=== PATIENT | male | born 1945 | race Caucasian/White ===

== ENCOUNTER → 2016-07-19 | Outpatient (CLI) | payer MEDICARE | LOC: YCFC.O 10:38 | PROVIDERS: ATTEND Nurse Practitioner Family | DX: J06.9 Acute upper respiratory infection, unspecified (principal) ==

== ENCOUNTER → 2016-07-25 | Outpatient (CLI) | payer MEDICARE | LOC: LAB.O 08:38 | PROVIDERS: ATTEND Nurse Practitioner Family | DX: E11.9 Type 2 diabetes mellitus without complications (principal); E78.5 Hyperlipidemia, unspecified; Z12.5 Encounter for screening for malignant neoplasm of prostate; Z13.29 Encounter for screening for other suspected endocrine disorder ==

== ENCOUNTER → 2016-10-19 | Outpatient (CLI) | payer MEDICARE | LOC: YCFC.O 07:38 | PROVIDERS: ATTEND Nurse Practitioner Family | DX: E11.9 Type 2 diabetes mellitus without complications (principal) ==

== ENCOUNTER → 2017-01-16 | Outpatient (CLI) | payer MEDICARE | END | disposition home or self-care (01) | LOC: YCFC.O 08:37 | PROVIDERS: ATTEND Nurse Practitioner Family | DX: E11.9 Type 2 diabetes mellitus without complications (principal) ==

== ENCOUNTER → 2017-04-12 | Outpatient (CLI) | payer MEDICARE | END | disposition home or self-care (01) | LOC: YCFC.O 12:12 | PROVIDERS: ATTEND Nurse Practitioner Family | DX: E11.9 Type 2 diabetes mellitus without complications (principal); R60.0 Localized edema; I10 Essential (primary) hypertension ==

== ENCOUNTER → 2017-10-31 | Outpatient (CLI) | payer MEDICARE | LOC: YCFC.O 07:38 | PROVIDERS: ATTEND Nurse Practitioner Family | DX: E78.2 Mixed hyperlipidemia (principal); E11.9 Type 2 diabetes mellitus without complications; I10 Essential (primary) hypertension ==

== ENCOUNTER → 2018-01-24 | Outpatient (CLI) | payer MEDICARE | LOC: YCFC.O 08:16 | PROVIDERS: ATTEND Nurse Practitioner Family | DX: E11.9 Type 2 diabetes mellitus without complications (principal) ==

== ENCOUNTER → 2018-07-31 | Outpatient (CLI) | payer MEDICARE | LOC: LAB.O 07:34 | PROVIDERS: ATTEND Nurse Practitioner Family | DX: E11.65 Type 2 diabetes mellitus with hyperglycemia (principal); I10 Essential (primary) hypertension; E78.2 Mixed hyperlipidemia ==

== ENCOUNTER 2018-10-13 14:24 | Inpatient (IN) | payer MEDICARE ==
[2018-10-13] MEDS ORDERED: ONDANSETRON ODT 8 MG TAB SL ONE (14:28)
--- NOTE | 2018-10-13 15:20 | CT ---
EXAM DESCRIPTION: Head CLINICAL HISTORY: 73 years, Male, fall yesterday, severe bruising, swelling COMPARISON: None TECHNIQUE: Head CT was performed without IV contrast. This exam was performed according to our departmental dose-optimization program, which includes automated exposure control, adjustment of the mA and/or kV according to patient size and/or use of iterative reconstruction technique. FINDINGS: There is no acute intracranial hemorrhage. No midline shift or other mass effect. The ventricles and basilar cisterns are well maintained. No posterior fossa lesion. There is an old lacunar infarct versus prominent perivascular space in the left-sided basal ganglia. No cortical infarct. Prominent left-sided soft tissue swelling is noted without calvarial fracture. Hyperdense fluid and gas is present in the left maxillary sinus, only partially visualized but concerning for blood and maxillary sinus fracture. IMPRESSION: Prominent left-sided soft tissue swelling with possible fracture involving the left maxillary sinus, better evaluated on today's maxillofacial CT. Please see separate report from that exam for more detailed discussion of findings. Vascular calcifications and chronic ischemic changes without acute intracranial abnormality. Electronically signed by: Steven Dixon MD 10/13/2018 3:16 PM CDT
--- NOTE | 2018-10-13 15:24 | CT ---
EXAM DESCRIPTION: Maxillofacial CLINICAL HISTORY: 73 years, Male, fall yesterday, severe bruising, swelling COMPARISON: None TECHNIQUE: [Maxillofacial CT was performed without IV contrast.] This exam was performed according to our departmental dose-optimization program, which includes automated exposure control, adjustment of the mA and/or kV according to patient size and/or use of iterative reconstruction technique. FINDINGS: Prominent left periorbital and left-sided facial soft tissue swelling. Minimally displaced left orbital floor fracture with additional fracture involving the anterior wall of the left maxillary sinus with two or 3 mm displacement. Blood and gas is noted in the left maxillary sinus. No right orbital wall or floor fracture. No right maxillary sinus fracture. The nasal bones and nasal septum are intact. The mandible and temporomandibular joints are unremarkable. Visualized portions of the cervical spine are intact. There is an ovoid masslike lesion in the subcutaneous soft tissues anterior to the left maxillary sinus measuring up to 3.8 cm diameter concerning for hematoma. No intraorbital mass. The globes and extraocular muscles are bilaterally symmetric. IMPRESSION: Nonremarkable minimal displaced left orbital floor fracture with additional fracture involving the anterior wall of the left maxillary sinus with up to two or 3 mm posterior displacement. Large amount of blood in the left maxillary sinus. Extensive left periorbital and left-sided facial soft tissue swelling with a 3.8 cm hematoma in the soft tissues anterior to the left maxillary sinus. . Electronically signed by: Steven Dixon MD 10/13/2018 3:21 PM CDT
[2018-10-13] MEDS ORDERED: PIPERACILLIN/TAZOBACTAM 3.375 GM in SODIUM CHLORIDE 0.9% 100ML 100 ML IVPB ONE (15:36)
[2018-10-13] MEDS ORDERED: PROMETHAZINE HCL INJ 25 MG in SODIUM CHLORIDE 0.9% 50ML 50 ML IVPB ONE (15:36)
[2018-10-13] MEDS ORDERED: SODIUM CHLORIDE 0.9% 100ML 100 ML IVPB ONE (15:37)
[2018-10-13] MEDS ORDERED: SODIUM CHLORIDE 0.9% 50ML 50 ML ONE (15:37)
[2018-10-13] MEDS ORDERED: PIPERACILLIN/TAZOBACTAM 3.375 GM VIAL IVPB ONE (15:37)
[2018-10-13] MEDS ORDERED: PROMETHAZINE HCL INJ 25 MG/ML VIAL ONE (15:37)
[2018-10-13] MEDS ORDERED: SOD CHL 3% *HYPERTONIC* 500ML 160 ML IVS ONE (15:40)
--- NOTE | 2018-10-13 16:26 | RAD ---
EXAM DESCRIPTION: Chest,1 View CLINICAL HISTORY: 73 years Male hyponatremia COMPARISON: None. FINDINGS: [place] size is within normal limits. There are areas of linear atelectasis in the left midlung and right lung base. Area of probable atelectasis or scarring in the lateral aspect of the left chest. There is no evidence of pneumothorax or pleural fluid. Median sternotomy wires are present. IMPRESSION: Linear areas in the lingula and left midlung field which likely reflect atelectasis or scarring Electronically signed by: Cris Choudhury MD 10/13/2018 4:23 PM CDT
--- NOTE | 2018-10-13 16:26 | HP ---
SUPERVISING PHYSICIAN: Mao Ragsdale MD CHIEF COMPLAINT: Facial and head trauma secondary to same-level fall. HISTORY OF PRESENT ILLNESS: Mr. Ferguson is a 73 year-old male patient who was brought to the Emergency Room by his family for nausea or vomiting. The patient noted that he was playing pool with his grandson last night in their shop when apparently he fell and struck his head on the plywood floor. He is unsure if he actually had any kind of change in mental status before or after and is unsure just how long he was actually out if he was out for any additional time. His grandson was not available at time of admission for further interview. Mr. Ferguson does note that he is a frequent beer drinker and apparently he drank about 8 or more beers last night before the incident occurred. He voiced that he was reluctant to come to the Emergency Room but was encouraged by his family members. On examination in the Emergency Room, it was noted that he had a very extensive hematoma to the left side of his face and both orbital areas which were significantly swollen with the left being extensively to the point to where he could not open his left eye. Neurologically, he was alert and oriented on exam with no other obvious injuries. He refused pain management, said he did not need anything for headache or any other pain related to the injury. He denied any vision changes yesterday or today and notes that there is no additional pain with any extraocular movements on exam. He is able to forcibly open the left eye slightly so that he can see light when he does so without any other complications. It is noted the incident the occurred about 18 hours prior to his arrival to the Emergency Room today. His laboratory studies were significant for a moderate hyponatremia of 124 and a serum osmolality of 252. Radiographic studies included a CT of the head, maxillofacial without contrast and per radiology interpretation shows no intracranial hemorrhage or acute intracranial pathology and there was note of extensive soft tissue swelling to the left side of the face with a 4 cm hematoma anterior to the left maxillary sinus. There was also a 3 mm depression of the anterior wall of the left maxillary sinus and a nondisplaced nuclear orbital wall fracture on the left. There was no evidence of any orbital hematoma or impingement on extraocular musculature. There was no evidence of any global changes and no evidence of any other acute fractures. Given the patient's advanced age and significant facial trauma, Dr. Sumner requested the patient be placed in observation for further neurological examination and to help the underlying hyponatremia with etiology at this point being uncertain. The patient does have a history of diabetes and is not on any current antidiuretics or antipsychotic medications to contribute to the hyponatremia, although the patient does admit that he drinks beer frequently and again yesterday, drank 8 or more beers. Vital signs show that he was stable, he was afebrile with a temperature of 99.2. He was hypertensive with a blood pressure of 192/93, initially saturation was 93%. Again, he is neurologically intact, no obvious complications in regards to the facial injuries. Therefore, the patient is going to be placed in observation for further monitoring. He was initiated on antibiotic coverage given the degree of fractures to the left sinus. He was in stable condition at time of admission to observation. PAST MEDICAL HISTORY: 1. Diabetes mellitus type 2 on oral therapy. 2. Hypertension. PAST SURGICAL HISTORY: 1. 6-vessel cardiac arterial bypass graft in 2011. 2. Bilateral cataract with lens replacement in 2017. CURRENT MEDICATIONS: 1. Glyburide 5 mg daily. 2. Aspirin 325 mg daily. 3. Metformin 1000 mg daily. 4. Losartan 50 mg daily. 5. Lopressor 25 mg daily. 6. Simvastatin 20 mg daily. ALLERGIES: No known drug allergies. FAMILY HISTORY: Unremarkable and noncontributory. 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 He is and lives in [place]. He did smoke tobacco but quit in the early 70s. He does admit to drinking anywhere from 6 beers upward on a frequent basis, generally on the weekends. He denies any illicit drug use. REVIEW OF SYSTEMS: CONSTITUTIONAL: Notes just general malaise but no fevers, chills or unintentional weight loss. HEENT: As noted in the history of present illness. RESPIRATORY: Negative for any wheezing, coughing or shortness of breath or exertional dyspnea. CARDIAC: Negative for chest pain, palpitations, tachycardia or syncopal episodes but positive for questionable syncopal episode, although unlikely related to cardiovascular disease. GASTROINTESTINAL: Positive for nausea and vomiting as noted in the history of present illness. No abdominal pains, constipation or diarrhea. GENITOURINARY: Denies any dysuria, hematuria or polyuria. MUSCULOSKELETAL: Negative for any arthralgias. SKIN: As noted in the history of present illness, extensive hematoma to the left upper face. NEUROLOGICAL: Positive for headache, negative for ataxia or seizures or other focal deficits. HEMATOLOGIC: Denies any unexplained bleeding or easy bruising. PHYSICAL EXAMINATION: VITAL SIGNS: Temperature 98.2, pulse 75, blood pressure 178/74, respirations 16, saturation 95% on room air. Admission weight if 93.3 kg. GENERAL: The patient is resting comfortably, he appears to be in no acute distress. He is alert. HEENT: Exam of the right eye appears to be normal with normal extraocular movement, unable to fully assess left eye secondary to swelling, although he reports no pain on examination or tracking extraocular movement exam. There is significant hematoma expanding down from the left cheek as well as involving both orbits. Oropharynx is pink and moist without any lesions. It is notably atraumatic. NECK: Supple, full range of motion. No vertebral tenderness, it is atraumatic. CHEST: Breath sounds are clear to auscultation bilaterally without any rhonchi, rales, or wheezes. CARDIOVASCULAR: Regular rate and rhythm without appreciable murmurs, rubs, or gallops. ABDOMEN: Soft, non-tender, positive bowel sounds. EXTREMITIES: Without any cyanosis, clubbing, or edema and without any trauma other than a small of ecchymosis to the left elbow. Moves all extremities ad arabella. BACK: Exam demonstrated no CVA tenderness. There was also no vertebral tenderness noted on palpation. No obvious trauma. NEUROLOGIC: Cranial nerves II through XII are grossly intact. I was unable to fully assess secondary to the swelling of the left eye. However, he was alert and oriented x 3. Facial features were symmetrical. Extraocular movements as I was able to assess appear to be normal with no notable nystagmus, only able to fully assess with right eye. SKIN: [place], warm and dry except for noted bruising to the facial area. LABORATORY: CBC showed a white count of 7,900 with hemoglobin 18.9 and hematocrit 39.6, platelet count 107,000, differential did show to be without a left shift. Coagulation studly showed a PT of 10.8, PTT 24.3, with chemistries indicating a sodium of 124, chloride of 89 with a serum osmolality of 252. Potassium 4.3, BUN 10, creatinine 0.8, bilirubin slightly elevated at 1.3. Other liver functions showing to be within normal limits. Urine osmolality is pending. Urine sodium is pending. Urinalysis pending. RADIOLOGY: Chest x-ray showed per radiology interpretation, scarring and atelectasis and no obvious infiltrate. He also had a CT scan of the head without contrast that showed no intracranial hemorrhage or other acute intracranial pathology as well as maxillofacial CT showed soft tissue swelling in the left side of the face with a 4 cm hematoma anterior to the left maxillary sinus. There was also note of a 3 mm depression to the anterior wall of the left maxillary sinus with nondisplaced inferior orbital wall fracture. There was no evidence of orbital hematoma or impingement of extraocular movement musculature. Please see that full report for details. CT of the cervical spine was pending. ASSESSMENT: 1. Moderate hyponatremia, uncertain etiology, cannot fully rule out SIADH although the patient does have a history of frequent beer consumption which could be contributing to his low sodium levels acutely. 2. Same-level fall without unknown loss of consciousness resulting in a fracture of the left orbital floor as well as the left maxillary sinus with fall probably related to #1 and exacerbated by recent alcohol consumption. 3. Concussion secondary to same-level fall with unknown loss of consciousness. 4. Diabetes mellitus type 2 on oral therapy. 5. Hypertension. PLAN: The patient is going to be placed in observation. We will get a CT of his neck considering the mechanism of injury last night and obvious trauma to his face, although the patient right now is not complaining of any neck pain. He was given an initial dose of Zosyn given the nature of his fractures of the maxillary sinus. I will also continue this but change him over to Unasyn with anticipation of discharging on Augmentin. Will hold off on any anticoagulation at this point, recheck his hemoglobin and hematocrit in the morning as well as platelets. Will put him on some normal saline. He was initially on 3% hypertonic saline and I stopped this and will recheck his labs in the morning. He will be on insulin sliding scale per protocol. We will resume his home medications once those have been updated and verified. It may be warranted to repeat a CT scan in the morning to further assess for any worsening of the orbital hematoma but will wait and decide this after clinical reevaluation in the morning. Until then, he will be on every 4 hours neuro checks. Will anticipate his length of stay to be one to two days and will probably discharge him later tomorrow. When he is discharged, he will need followup with his primary care physician at [facility] and ENT specialist. Until discharge, we will continue to monitor and treat as needed. #[id number] MTDD
--- NOTE | 2018-10-13 16:35 | ED.PDOC ---
History of Present Illness - General Chief Complaint: Trauma Stated Complaint: Fall from standing level and hit his face Time Seen by Provider: 10/13/18 14:27 Source: patient Exam Limitations: no limitations - History of Present Illness Initial Comments: the patient is 73-year-old male presenting to the emergency room secondary mainly to nausea and vomiting. The patient actually fell yesterday evening and hit his face on the floor. No loss of consciousness. No altered mental status before or after. He started developing a hematoma almost immediately. No difficulties with extraocular movement. No pain with extraocular movement. No double vision. No vision changes. By this morning his eyes swell closed to the point we cannot open it. he has very extensive bruising to the left side of the face. He is able to open and close his jaw without difficulty. He is alert and oriented. No other obvious injuries. Nasal septum is straight. He is down approximately 3 times. No blood and no bile. No shortness of breath. No chest pain. No palpitations. He does of course have a headache. Timing/Duration: other - about 18 hours Severity: moderate Improving Factors: nothing Worsening Factors: nothing Associated Symptoms: headaches, malaise, nausea/vomiting Allergies/Adverse Reactions: Allergies NO KNOWN ALLERGY Allergy (Verified 10/13/18 14:35) Home Medications: Ambulatory Orders Aspirin (Buffered) 325 mg [Bufferin 325 mg] 1 ea PO DAILY 10/13/18 Glyburide 5 mg PO DAILY 10/13/18 Losartan Potassium 50 mg PO DAILY 10/13/18 Metformin HCl 1,000 mg PO DAILY 10/13/18 Metoprolol Tartrate [Lopressor] 25 mg PO DAILY 10/13/18 Simvastatin 20 mg PO DAILY 10/13/18 Review of Systems - Review of Systems Constitutional: States: malaise EENTM: States: see HPI Respiratory: States: no symptoms reported Cardiology: States: no symptoms reported Gastrointestinal/Abdominal: States: nausea, vomiting Genitourinary: States: no symptoms reported Musculoskeletal: States: no symptoms reported Skin: States: see HPI Neurological: States: headache Endocrine: States: no symptoms reported All other Systems: No Change from Baseline Past Medical History (General) - Patient Medical History Hx Stroke: No Hx Cardiac Disorders: Yes Hx Congestive Heart Failure: No Hx Hypertension: Yes Hx Diabetes: Yes Surgical History: coronary bypass surgery - Vaccination History Hx Tetanus, Diphtheria Vaccination: Yes - 2011 Hx Influenza Vaccination: No Hx Pneumococcal Vaccination: No - Social History Hx Tobacco Use: Yes Family Medical History - Family History Father Family History: Unknown Living Status: Unknown Physical Exam - Physical Exam General Appearance: Alert, No apparent distress Eye Exam: right normal, left other - unable to assess secondary to swelling however he appears to have no pain with tracking. Ears, Nose, Throat: hearing grossly normal, other - significant hematoma formation down the left cheek. Neck: full range of motion, supple Respiratory: lungs clear, normal breath sounds, no respiratory distress, no accessory muscle use Cardiovascular/Chest: normal peripheral pulses, no edema, other - regular rate Peripheral Pulses: radial,right: 2+, radial,left: 2+ Gastrointestinal/Abdominal: non tender, soft Rectal Exam: deferred Back Exam: no CVA tenderness, no vertebral tenderness Extremity: non-tender, normal inspection, no pedal edema, normal capillary refill Neurologic: insole taper II-XII nml as tested - as best can be determined, alert, normal mood/affect, oriented x 3 Skin Exam: normal color - except for the bruising to the face. Comments: Vital Signs - 24 hr 10/13/18 10/13/18 14:30 16:05 Temperature 99.2 F Pulse Rate [ 71 73 Left Brachial] Respiratory 20 20 Rate Blood Pressure 192/93 156/83 [Left Arm] O2 Sat by Pulse 98 94 L Oximetry Progress - Progress Progress: 10/13/18 16:39 the patient's 73-year-old male presenting to emergency room secondary to nausea and vomiting that started today after having had a fall with an obvious head injury yesterday. The patient does appear to have a concussion. He is being given some nausea medications to help control nausea related to this. He has refused pain medications to this point. He does have a large area of bruising to the left side of his face related to the fall. There is a hematoma anterior to the left maxillary sinus on ct that we will defer evacu ation on at this time as it will not likely help this far out from the injury and it would only increase the likelihood of an infection by essentially creating an open fracture. to that end the patient is being placed on Zosyn for the maxillary sinus fracture to prevent any infection from developing in the left orbit. Hemoglobin and hematocrit are within normal limits. Inferior orbital wall fracture and anterior maxillary sinus wall fracture appear to be stable based on CT scan and there is no evidence of any double vision with the patient yesterday when he could see after the fall, and no evidence of any pain with extraocular movements today. We are unable to assess the eye directly secondary to swelling. Blood thinners for now will be held. The patient does have significant hyponatremia for which he is receiving replacement with low flow 3% saline for 160 cc total. Source of this is not entirely certain. 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 Urinalysis is still pending. Admit for correction and monitoring of above issues. - Results/Orders Results/Orders: urinalysis is still pending. Chest x-ray shows some scarring and atelectasis but no obvious infiltrate. CT scan of the head shows no intracranial hemorrhage or acute intracranial pathology. Maxillofacial CT shows extensive soft tissue swelling to the left side of the face with a 4 cm hematoma anterior to the left maxillary sinus. There is a 3 mm depression to the anterior wall of the left maxillary sinus and a nondisplaced inferior orbital wall fracture on the left. No evidence of orbital hematoma or impingement of extraocular musculature. No evidence of any global changes. No evidence of any fractures otherwise. Laboratory Results - last 24 hr 10/13/18 10/13/18 10/13/18 14:45 14:45 14:45 WBC 7.9 RBC 4.71 Hgb 13.9 L Hct 39.6 L MCV 84.0 MCH 29.4 MCHC 35.0 RDW 14.2 Plt Count 107 L MPV 8.4 Absolute Neuts (auto) 6.20 Absolute Lymphs (auto) 1.00 Absolute Monos (auto) 0.50 Absolute Eos (auto) 0.10 Absolute Basos (auto) 0.10 Neutrophils % 78.8 H Lymphocytes % 13.2 L Monocytes % 6.1 Eosinophils % 0.8 L Basophils % 1.1 PT 10.8 INR 1.08 PTT (SP) 24.3 Sodium 124 L Potassium 4.3 Chloride 89 L Carbon Dioxide 21 Anion Gap 18.3 H BUN 10 Creatinine 0.88 BUN/Creatinine Ratio 11.4 Random Glucose 160 H Serum Osmolality 252.1 L* Calcium 8.4 Total Bilirubin 1.3 H AST 22 ALT 10 Alkaline Phosphatase 69 Serum Total Protein 6.9 Albumin 4.1 Globulin 2.8 Albumin/Globulin Ratio 1.5 - EKG/XRAY/CT CT Ordered: Yes Departure - Departure Clinical Impression: Hyponatremia Fall at home Qualifiers: Encounter type: initial encounter Qualified Code(s): W19.XXXA - Unspecified fall, initial encounter; Y92.009 - Unspecified place in unspecified non- institutional (private) residence as the place of occurrence of the external cause Fracture of inferior orbital wall Qualifiers: Encounter type: initial encounter Fracture type: closed Laterality: left Qualified Code(s): S02.32XA - Fracture of orbital floor, left side, initial encounter for closed fracture Closed fracture of maxillary sinus Qualifiers: Encounter type: initial encounter Qualified Code(s): S02.401A - Maxillary fracture, unspecified side, initial encounter for closed fracture Concussion Qualifiers: Encounter type: initial encounter Loss of consciousness presence/duration: without LOC Qualified Code(s): S06.0X0A - Concussion without loss of consciousness, initial encounter Disposition: Admit Patient Home Medications: Ambulatory Orders Aspirin (Buffered) 325 mg [Bufferin 325 mg] 1 ea PO DAILY 10/13/18 Glyburide 5 mg PO DAILY 10/13/18 Losartan Potassium 50 mg PO DAILY 10/13/18 Metformin HCl 1,000 mg PO DAILY 10/13/18 Metoprolol Tartrate [Lopressor] 25 mg PO DAILY 10/13/18 Simvastatin 20 mg PO DAILY 10/13/18 Decision To Admit - Decistion To Admit Decision to Admit Reason: Medical Nature Decision to Admit Date: 10/13/18 Decision to Admit Time: 16:45
[2018-10-13] MEDS ORDERED: IV SET AND CAP CHANGE INJ INJ SCH (17:30)
[2018-10-13] MEDS ORDERED: SODIUM CHLORIDE 0.9% (FLUSH) 10 ML SYG IV PRN (17:30)
[2018-10-13] MEDS ORDERED: ACETAMINOPHEN 325 MG TAB PO PRN (17:30)
[2018-10-13] MEDS ORDERED: GLUCAGON INJ 1 MG VIAL SUBCU PRN (17:34)
[2018-10-13] MEDS ORDERED: DEXTROSE 50% 25 GM/50 ML SYG IV PRN (17:34)
[2018-10-13] MEDS ORDERED: AMPICILLIN & SULBACTAM SODIUM 1.5 GM VIAL ONE ×2 (19:01→19:02)
[2018-10-13] MEDS ORDERED: SODIUM CHL 0.9% 50ML MIN-BAG+ 50 ML IVPB ONE ×2 (19:02)
[2018-10-13] MEDS: AMPICILLIN & SULBACTAM SODIUM 1.5 GM in SODIUM CHL 0.9% 50ML MIN-BAG+ 50 ML IVPB SCH (19:39)
[2018-10-13] MEDS: SODIUM CHLORIDE 0.9% 1000ML 1,000 ML IVS PRN (19:43)
[2018-10-13] MEDS: INSULIN LISPRO 100 UNITS/ML PEN SUBCU SCH (20:50)
--- NOTE | 2018-10-13 21:26 | CT ---
PROCEDURE: Cervical Spine CLINICAL HISTORY: 73 years Male unwitnessed same level fall with facial trauma COMPARISON: None. TECHNIQUE: Contiguous axial images obtained through the cervical spine without IV contrast. Coronal and sagittal reformatted images obtained. This exam was performed according to our department optimization program which includes automated exposure control, adjustment of the mA and/or kv according to patient size and/or use of iterative reconstruction technique. FINDINGS: There is soft tissue swelling and hematoma along the left parotid and along the left submandibular region and segments of the left neck. There is opacification of the left maxillary sinus. Vertebral body alignment is unremarkable. No acute fractures. C4-5 C5-6 and C6-7 disc interspaces are narrowed with subchondral sclerosis and osteophytosis. There is moderate narrowing bilaterally and the neural foramina at C4-5 and severe narrowing at C5-6. IMPRESSION: No acute cervical spinal fracture is identified. Soft tissue swelling and hematoma/contusion along the left cheek, along the left parotid gland and submandibular region extending into the anterior left neck with hemorrhage in the left maxillary sinus Electronically signed by: Cris Choudhury MD 10/13/2018 9:23 PM CDT
[2018-10-14] MEDS: AMPICILLIN & SULBACTAM SODIUM 1.5 GM in SODIUM CHL 0.9% 50ML MIN-BAG+ 50 ML IVPB SCH ×2 (04:11→12:00)
[2018-10-14] MEDS: SODIUM CHLORIDE 0.9% 1000ML 1,000 ML IVS PRN (05:32)
[2018-10-14] MEDS: INSULIN LISPRO 100 UNITS/ML PEN SUBCU SCH ×2 (07:25→11:57)
[2018-10-14] MEDS ORDERED: LOSARTAN POTASSIUM 25 MG TAB PO SCH (09:00)
[2018-10-14] MEDS ORDERED: metFORMIN HCL 500 MG TAB PO SCH ×2 (09:00→09:02)
[2018-10-14] MEDS ORDERED: METOPROLOL TARTRATE 25 MG TAB PO SCH ×2 (09:00)
[2018-10-14 10:24] VITALS: BP 164/81; TEMP 98.1; O2SAT 96
[2018-10-14] MEDS ORDERED: SODIUM CHL 0.9% 50ML MIN-BAG+ 50 ML IVPB ONE (11:56)
[2018-10-14] MEDS ORDERED: AMPICILLIN & SULBACTAM SODIUM 1.5 GM VIAL ONE (11:56)
[2018-10-14] MEDS ORDERED: SIMVASTATIN 20 MG TAB PO SCH (21:00)
--- NOTE | 2018-10-14 21:34 | DS ---
SUPERVISING PHYSICIAN: Leonardo Roth M.D. ADMISSION DIAGNOSIS: 1. Moderate hyponatremia, uncertain etiology, cannot fully rule out SIADH although the patient does have a history of frequent beer consumption which could be contributing to his low sodium levels acutely. 2. Same-level fall without unknown loss of consciousness resulting in a fracture of the left orbital floor as well as the left maxillary sinus with fall probably related to #1 and exacerbated by recent alcohol consumption. 3. Concussion secondary to same-level fall with unknown loss of consciousness. 4. Diabetes mellitus type 2 on oral therapy. 5. Hypertension. DISCHARGE DIAGNOSIS: 1. Moderate hyponatremia, uncertain etiology, cannot fully rule out SIADH although the patient does have a history of frequent beer consumption which could be contributing to his low sodium levels acutely with sodium levels returning to baseline levels with initiation of fluids. 2. Same-level fall without unknown loss of consciousness resulting in a fracture of the left orbital floor as well as the left maxillary sinus with fall probably related to #1 and exacerbated by recent alcohol consumption with the patient showing no complications and being referred to ENT specialist at discharge, Dr. Anderson. 3. Concussion secondary to same-level fall with unknown loss of consciousness. 4. Diabetes mellitus type 2 on oral therapy. 5. Hypertension. REASON FOR HOSPITALIZATION: Mr. Ferguson is a 73 year-old male patient who was brought to the Emergency Room by his family for nausea or vomiting. The patient noted that he was playing pool with his grandson last night in their shop when apparently he fell and struck his head on the plywood floor. He is unsure if he actually had any kind of change in mental status before or after and is unsure just how long he was actually out if he was out for any additional time. His grandson was not available at time of admission for further interview. Mr. Ferguson does note that he is a frequent beer drinker and apparently he drank about 8 or more beers last night before the incident occurred. He voiced that he was reluctant to come to the Emergency Room but was encouraged by his family members. On examination in the Emergency Room, it was noted that he had a very extensive hematoma to the left side of his face and both orbital areas which were significantly swollen with the left being extensively to the point to where he could not open his left eye. Neurologically, he was alert and oriented on exam with no other obvious injuries. He refused pain management, said he did not need anything for headache or any other pain related to the injury. He denied any vision changes yesterday or today and notes that there is no additional pain with any extraocular movements on exam. He is able to forcibly open the left eye slightly so that he can see light when he does so without any other complications. It is noted the incident the occurred about 18 hours prior to his arrival to the Emergency Room today. His laboratory studies were significant for a moderate hyponatremia of 124 and a serum osmolality of 252. Radiographic studies included a CT of the head, maxillofacial without contrast and per radiology interpretation shows no intracranial hemorrhage or acute intracranial pathology and there was note of extensive soft tissue swelling to the left side of the face with a 4 cm hematoma anterior to the left maxillary sinus. There was also a 3 mm depression of the anterior wall of the left maxillary sinus and a nondisplaced nuclear orbital wall fracture on the left. There was no evidence of any orbital hematoma or impingement on extraocular musculature. There was no evidence of any global changes and no evidence of any other acute fractures. Given the patient's advanced age and significant facial trauma, Dr. Sumner requested the patient be placed in observation for further neurological examination and to help the underlying hyponatremia with etiology at this point being uncertain. The patient does have a history of diabetes and is not on any current antidiuretics or antipsychotic medications to contribute to the hyponatremia, although the patient does admit that he drinks beer frequently and again yesterday, drank 8 or more beers. Vital signs show that he was stable, he was afebrile with a temperature of 99.2. He was hypertensive with a blood pressure of 192/93, initially saturation was 93%. Again, he is neurologically intact, no obvious complications in regards to the facial injuries. Therefore, the patient is going to be placed in observation for further monitoring. He was initiated on antibiotic coverage given the degree of fractures to the left sinus. He was in stable condition at time of admission to observation. LABORATORY STUDIES: White count on admission was normal, at discharge white count was 5,500. Hemoglobin 12.4, hematocrit 36.1 respectively with platelet count 96,000. Differential showed to be initially with a left shift that resolved prior to discharge. Coagulation studies showed normal PT and PTT. Chemistries on admission showed sodium 124, at discharge 130. Potassium was normal at 3.7 and BUN 10, creatinine 0.85 on discharge. Blood sugars ranged between 147 and 241. Initial serum osmolality was 251, at discharge was 263. Calcium was 8.4. Total bilirubin slightly elevated at 1.3. All other liver functions were within normal limits. Urinalysis just showed 100 of glucose, 40 of ketones, otherwise within normal limits. Random sodium on urine was 33, urine osmolality was pending. MICROBIOLOGY: No specimens were submitted. RADIOLOGY: He had a CT of the head without any acute findings. No acute findings were seen on the maxillofacial CT without contrast and per radiology interpretation shows a nonremarkable minimal displaced left orbital floor fracture with an additional fracture involving the anterior wall of the left maxillary sinus up to 2 to 3 mm posterior displacement, large amount of blood in the left maxillary sinus. There was note of extensive left periorbital and left sided facial tissue swelling with a 3.8 hematoma in the soft tissue anterior to the left maxillary sinus. Please see that full report for details. He also had a chest x-ray on admission per radiology interpretation showed linear areas in the lingula and mid lung field which likely reflect atelectasis or scarring. HOSPITAL COURSE: Mr. Ferguson was admitted from the [facility] on 10/13/18 after he sustained a same level fall approximately 18 hours prior to admitting to the Emergency Department. He was placed in observation for close neurological monitoring and reevaluation prior to discharging. He showed no complications. Neurological status remained intact. His blood pressure was showing to be stable at discharge. Vital signs showed temperature 98, pulse 71, blood pressure 164/81, respirations 18, satting 96% on room air. The patient was showing no compromise of his airway. No distress and was clinically improved well enough to continue with outpatient management. PLAN: Mr. Ferguson was discharged on 10/14/18 with instructions to followup with Dr. Pizarro in [place] by the end of the week. He was also prescribed Augmentin for questionable underlying sinus infection. Activity was to increase activity as tolerated but no driving until he was cleared by his primary care provider or Dr. Pizarro. Diet was diabetic diet as tolerated. He was encouraged to stop drinking. Condition on discharge was stable and improving. DISPOSITION: The patient was discharged to the care of family members. #[id number] [facility]
== END 2018-10-14 15:00 | disposition home or self-care (01) | DRG 644 ==
LOC: ER 14:24 → MS 16:25 → OBSVTOIN 16:25
PROVIDERS: ADMIT Nurse Practitioner Family; ATTEND Nurse Practitioner Family
DX: E22.2 Syndrome of inappropriate secretion of antidiuretic hormone (principal); S02.32XA Fracture of orbital floor, left side, initial encounter for closed fracture; S02.40DA Maxillary fracture, left side, initial encounter for closed fracture; S06.0X9A Concussion with loss of consciousness of unspecified duration, initial encounter; E11.9 Type 2 diabetes mellitus without complications; I10 Essential (primary) hypertension; W18.39XA Other fall on same level, initial encounter; Y93.89 Activity, other specified; Y92.89 Other specified places as the place of occurrence of the external cause; Z95.1 Presence of aortocoronary bypass graft; Z79.82 Long term (current) use of aspirin; Z79.84 Long term (current) use of oral hypoglycemic drugs; Z79.899 Other long term (current) drug therapy; Z87.891 Personal history of nicotine dependence

== ENCOUNTER → 2018-10-23 | Outpatient (CLI) | payer MEDICARE | LOC: NC 11:59 | PROVIDERS: ATTEND Family Medicine | DX: E11.9 Type 2 diabetes mellitus without complications (principal); I10 Essential (primary) hypertension; E78.5 Hyperlipidemia, unspecified ==

== ENCOUNTER 2019-01-06 15:58 | Emergency (ER) | payer MEDICARE ==
[2019-01-06] MEDS ORDERED: LIDOCAINE 1% 10 ML VIAL INJ ONE (16:24)
[2019-01-06] MEDS ORDERED: CHLORHEXIDINE GLUCONATE 4 % 15 ML UD TOP ONE (16:26)
[2019-01-06] MEDS ORDERED: LIDOCAINE 1% W/ EPINEPHRINE 20 ML VIAL INJ ONE (16:31)
--- NOTE | 2019-01-06 16:56 | ED.PDOC ---
History of Present Illness - General Chief Complaint: Laceration Stated Complaint: laceration to left side of face Time Seen by Provider: 01/06/19 16:51 Source: patient, RN notes reviewed, Vital Signs reviewed Additional Information: 73 YEAR OLD FELL FORWARD ON A GRAVEL GROUND AND INJURED THE LEFT SIDE OF TE FACE HE HAD SOME GRAVEL INSIDE THE GAPPING WOUND THAT WAS REMOVED BY HIS PRIOR TO COMING FEW MONTHS AGO HE HAD FALLEN AND SUSTAINED A FRACTURE INVOLVING THE LEFT MAXILLA HE ALSO HAS HISOTRY OF SEIZURES BUT HAD NOT HAD ONE IN LAST 40 YEARS HE HAS HAD CABAG AT [facility] BY DR VARGAS IN 2012 SINCE THEN HE HAS BEEN HAVING UNSTEADY GAIT AND FALLS LAST TIME THEY FOUND HIM TO BE HYPONATREMIC - History of Present Illness Timing/Duration: 1/2 hour Severity: mild Improving Factors: nothing Associated Symptoms: denies symptoms Allergies/Adverse Reactions: Allergies NO KNOWN ALLERGY Allergy (Verified 10/13/18 17:13) Home Medications: Ambulatory Orders Aspirin (Buffered) 325 mg [Bufferin 325 mg] 1 ea PO DAILY 10/13/18 Glyburide 10 mg PO BID 10/13/18 Losartan Potassium 50 mg PO DAILY 10/13/18 Metformin HCl [Metformin Hydrochloride] 1,000 mg PO BID 10/13/18 Metoprolol Tartrate [Lopressor] 25 mg PO BID 10/13/18 Simvastatin 20 mg PO DAILY 10/13/18 Sulfa/Trimeth 800/160 (Ds) Tab [Bactrim DS Tab] 1 ea PO Q12HR #20 tab 01/06/19 Review of Systems - Review of Systems Constitutional: States: no symptoms reported EENTM: States: no symptoms reported Respiratory: States: no symptoms reported, see HPI Cardiology: States: no symptoms reported Gastrointestinal/Abdominal: States: no symptoms reported, abdominal pain Genitourinary: States: no symptoms reported Musculoskeletal: States: no symptoms reported Skin: States: no symptoms reported Neurological: States: no symptoms reported Endocrine: States: no symptoms reported Hematologic/Lymphatic: States: no symptoms reported Past Medical History (General) - Patient Medical History Hx Seizures: Yes - last 1979 Hx Stroke: No Hx Asthma: No Hx of COPD: No Hx Cardiac Disorders: Yes Hx Congestive Heart Failure: No Hx Pacemaker: No Hx Hypertension: Yes Hx Diabetes: Yes Hx MRSA: No - Vaccination History Hx Tetanus, Diphtheria Vaccination: Yes - 2011 Hx Influenza Vaccination: No Hx Pneumococcal Vaccination: No - Social History Hx Tobacco Use: Yes Hx Alcohol Use: No Hx Substance Use: No Hx Physical Abuse: No Hx Emotional Abuse: No Family Medical History - Family History Father Family History: Unknown Living Status: Unknown Physical Exam - Physical Exam General Appearance: Alert Eye Exam: bilateral normal Ears, Nose, Throat: hearing grossly normal, normal ENT inspection, normal pharynx, other - THERE IS A DEEP LACERATION ON THE LEFT ZYGOMATIC ANTERIOR BORDER 3 INCHES DEEP TO THE DEEP FACIA Respiratory: chest non-tender, lungs clear, normal breath sounds, no respiratory distress, no accessory muscle use Cardiovascular/Chest: normal peripheral pulses, regular rate, rhythm, no edema, no gallop Gastrointestinal/Abdominal: normal bowel sounds, non tender, soft, no organomegaly, no pulsatile mass Back Exam: normal inspection 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, no motor/sensory deficits, alert, normal mood/affect, oriented x 3 Skin Exam: normal color, warm/dry Procedures - Laceration/Wound Repair Left Face Wound's Depth, Shape: into muscle, irregular, flap Wound Explored: foreign body removed Betadine Prep?: Yes Anesthesia: 1% Lidocaine, Lidocaine w/ Epi Wound Debrided: moderate Suture Size/Type: 4:0 Layer Closure?: Yes Deep Layer Suture Size/Type: 4:0, gut Number Deep Layer Sutures: 5 Sterile Dressing Applied?: Yes Splint Applied?: No Sling Applied?: No Departure - Departure Clinical Impression: Laceration, Type II diabetes mellitus Time of Disposition: 16:59 Disposition: Discharge to Home or Self Care Condition: Fair Departure Forms: ED Discharge - Pt. Copy, Patient Portal Self Enrollment Instructions: DI for Laceration Repair Referrals: Surekha Munoz NP [Primary Care Provider] - 1-2 Weeks Prescriptions: Sulfa/Trimeth 800/160 (Ds) Tab [Bactrim DS Tab] 1 ea PO Q12HR #20 tab Home Medications: Ambulatory Orders Aspirin (Buffered) 325 mg [Bufferin 325 mg] 1 ea PO DAILY 10/13/18 Glyburide 10 mg PO BID 10/13/18 Losartan Potassium 50 mg PO DAILY 10/13/18 Metformin HCl [Metformin Hydrochloride] 1,000 mg PO BID 10/13/18 Metoprolol Tartrate [Lopressor] 25 mg PO BID 10/13/18 Simvastatin 20 mg PO DAILY 10/13/18 Sulfa/Trimeth 800/160 (Ds) Tab [Bactrim DS Tab] 1 ea PO Q12HR #20 tab 01/06/19 Additional Instructions: WOUND CARE INSTRUCTIONS REMOVAL OF SUTURES ON DAY 6
[2019-01-06] MEDS ORDERED: ceFAZolin SODIUM 1 GM VIAL IM ONE (17:01)
[2019-01-06] MEDS ORDERED: WATER FOR INJ 10 ML VIAL INJ ONE (17:05)
[2019-01-06] MEDS ORDERED: TETANUS,DIPHTHERIA,PERTUSSIS 1 EA SYG IM ONE (17:16)
[2019-01-06 18:29] VITALS: BP 163/85; TEMP 97.8; O2SAT 97
== END 2019-01-06 18:25 | disposition home or self-care (01) ==
LOC: ER 15:58
DX: S01.412A Laceration without foreign body of left cheek and temporomandibular area, initial encounter (principal); E11.9 Type 2 diabetes mellitus without complications; I10 Essential (primary) hypertension; I51.9 Heart disease, unspecified; Z95.1 Presence of aortocoronary bypass graft; Z87.891 Personal history of nicotine dependence; Z87.81 Personal history of (healed) traumatic fracture; Z79.82 Long term (current) use of aspirin; Z79.84 Long term (current) use of oral hypoglycemic drugs; Z79.899 Other long term (current) drug therapy; W18.30XA Fall on same level, unspecified, initial encounter; Y92.9 Unspecified place or not applicable
CPT/HCPCS: 80048; 85025; 90471; 90715; A4216; J0690

== ENCOUNTER → 2019-03-06 | Outpatient (CLI) | payer MEDICARE ==
--- NOTE | 2019-03-07 11:53 | US ---
EXAM DESCRIPTION: Carotid Duplex: ULTRASOUND. CLINICAL HISTORY: 73 years Male SY[employer]OPE COMPARISON: CT scan of the head 10/13/2018. TECHNIQUE: Transcutaneous scanning utilizing parker-scale and Doppler modes to evaluate the bilateral carotid systems and vertebral arteries. Percentage of diameter of stenosis or no stenosis recorded will be based upon NASCET criteria. FINDINGS: Peak systolic/end diastolic (CM-Sec) CCA Right 82/15 Left 85/11. ICA Right proximal 66/9, mid 70/19. Left proximal 57/15, Distal 59/15. Vertebral Right 28/0 Left 35/7. ECA (PS Only) Right 102 left 100. ICA/CCA peak systolic ratio: Right 0.9 Left 0.7 ICA/CCA end diastolic ratio: Right 1.2 Left 1.4 Vertebral arteries: antegrade flow. Comments: Bilateral atherosclerotic calcifications. Spectral broadening in the proximal right ICA. Spectral broadening in the distal left ICA. Mid right CCA bulb: Area stenosis 29% and diameter stenosis 40%. Proximal right ICA: Area stenosis 22% and diameter stenosis 31%. Diameter and area stenosis in the left CCA bulb and left ICA less than 20%. IMPRESSION: 1. Doppler evaluation of the bilateral carotid systems and vertebral arteries shows no hemodynamically significant stenoses. 2. No significant amount of plaque seen in the carotid arteries bilaterally. Bilateral vertebral arteries showed antegrade-cephalad flow. Electronically signed by: Kevon Arellano MD 03/07/2019 11:51 AM CDT
== END ==
LOC: US 09:29
PROVIDERS: ATTEND Internal Medicine Interventional Cardiology
DX: R55 Syncope and collapse (principal)

== ENCOUNTER → 2019-05-09 | Outpatient (CLI) | payer MEDICARE | LOC: YCFC.O 08:16 | PROVIDERS: ATTEND Nurse Practitioner | DX: E11.9 Type 2 diabetes mellitus without complications (principal); I10 Essential (primary) hypertension ==

== ENCOUNTER → 2019-11-11 | Outpatient (CLI) | payer OTHER | LOC: YCFC.O 07:37 | PROVIDERS: ATTEND Nurse Practitioner | DX: I10 Essential (primary) hypertension (principal); E11.9 Type 2 diabetes mellitus without complications ==

== ENCOUNTER → 2020-05-10 | Outpatient (CLI) | payer OTHER | LOC: LAB.O 07:47 | PROVIDERS: ATTEND Nurse Practitioner | DX: E11.9 Type 2 diabetes mellitus without complications (principal); I10 Essential (primary) hypertension; E78.5 Hyperlipidemia, unspecified ==

== ENCOUNTER 2020-07-12 08:36 | Observation (INO) | payer OTHER ==
--- NOTE | 2020-07-12 08:44 | ED.PDOC ---
History of Present Illness - General Stated Complaint: Per patient and :Patient awakened about 8:15 AM this morning with slurred speech and weakness of the left upper and left lower extremities. He was awake but not as alert as usual. There was no headache. The symptoms lasted for about 15 minutes after which they completely subsided. Patient now feels completely back to his usual baseline. He has no prior history of CVA or TIA. He did not take his morning aspirin today. Time Seen by Provider: 07/12/20 08:44 Source: patient, family Exam Limitations: no limitations - History of Present Illness Timing/Duration: 1/2 hour Improving Factors: nothing Worsening Factors: nothing Associated Symptoms: denies symptoms Allergies/Adverse Reactions: Allergies NO KNOWN ALLERGY Allergy (Verified 07/12/20 08:59) Home Medications: Ambulatory Orders Aspirin (Buffered) 325 mg [Bufferin 325 mg] 1 ea PO DAILY 10/13/18 Glyburide 10 mg PO BID 10/13/18 Losartan Potassium 50 mg PO DAILY 10/13/18 Metformin HCl [Metformin Hydrochloride] 1,000 mg PO BID 10/13/18 Metoprolol Tartrate [Lopressor] 25 mg PO BID 10/13/18 Simvastatin 20 mg PO DAILY 10/13/18 Review of Systems - Review of Systems Constitutional: Denies: chills, fever, malaise EENTM: States: no symptoms reported Respiratory: States: no symptoms reported Cardiology: States: no symptoms reported Gastrointestinal/Abdominal: States: no symptoms reported Genitourinary: States: no symptoms reported Musculoskeletal: States: no symptoms reported Skin: States: no symptoms reported Neurological: States: see HPI Past Medical History (General) - Patient Medical History Hx Seizures: Yes - last 1979 Hx Stroke: No Hx Asthma: No Hx of COPD: No Hx Cardiac Disorders: Yes Hx Congestive Heart Failure: No Hx Pacemaker: No Hx Hypertension: Yes Hx Diabetes: Yes Hx MRSA: No - Vaccination History Hx Tetanus, Diphtheria Vaccination: Yes - 2011 Hx Influenza Vaccination: No Hx Pneumococcal Vaccination: No - Social History Hx Tobacco Use: Yes Hx Alcohol Use: No Hx Substance Use: No Hx Physical Abuse: No Hx Emotional Abuse: No Family Medical History - Family History Father Family History: Unknown Living Status: Unknown Physical Exam - Physical Exam General Appearance: Alert Eye Exam: bilateral normal Ears, Nose, Throat: other - Very hard of hearing, Pre-existing Neck: non-tender, full range of motion, supple Respiratory: normal breath sounds, no respiratory distress Cardiovascular/Chest: normal peripheral pulses, regular rate, rhythm, no edema, no JVD Gastrointestinal/Abdominal: normal bowel sounds, non tender, soft, no organomegaly Back Exam: normal inspection, no CVA tenderness Extremity: normal range of motion, no calf tenderness Neurologic: chaperon II-XII nml as tested, no motor/sensory deficits, alert, oriented x 3, other - Full NIH stroke scale score 0, no positive findings. Skin Exam: normal color Lymphatic: no adenopathy Progress - Progress Progress: 07/12/20 11:11 Discussed with , Neurologist marketing community liaison who performed telemetry neurology consult using bedside video conferencing.He recommends Observation admission with a MRI of the brain without contrast and a CTA of the head and neck to be performed.Discussed with Poncho Baum, nurse practitioner on-call for [facility]: He is willing to admit the patient and order the studies requested. There will be some delay in admission pending discharges and cleaning of beds.The patient was informed of the plan and he and his are in agreement 07/12/20 12:42 Blood pressure starting to elevate per nursing staff. Patient did not take his usual medications today for blood pressure, which include losartan 50 mg and metoprolol 25 mg.These medications were ordered for administration stat. - Results/Orders Results/Orders: EXAM DESCRIPTION: Head CLINICAL HISTORY: Possible CVA COMPARISON: October 13, 2018 TECHNIQUE: Noncontrast transaxial CT images of the head are obtained from base to vertex. This exam was performed according to our departmental dose- optimization program, which includes automated exposure control, adjustment of the mA and/or kV according to patient size and/or use of iterative reconstruction technique. FINDINGS: The midline structures are not displaced. Sulci are age-appropriate. There are areas of decreased attenuation in the periventricular white matter and the white matter of the centrum semiovale. Focus of decreased attenuation in the left head of the caudate to basal ganglia is stable from previous likely representing area of old lacunar infarct. There is no evidence of mass, mass-effect, hydrocephalus, or acute intracranial hemorrhage. No abnormal extra axial fluid collection is seen. Bone windows show no evidence of depressed skull fracture. Moderate to severe calcifications of the intracranial carotid arteries. The visualized paranasal sinuses are unremarkable. Interval resolution of complete opacification of the left maxillary sinus. IMPRESSION: 1. Age-appropriate atrophy with evidence of old small vessel ischemic type changes seen. 2. No acute abnormality is seen on noncontrast CT of the head. Electronically signed by: Roberto Carlos Combs MD 07/12/2020 9:31 AM MANAGER BANQUET 9:56 AM. Aspirin 325 mg by mouth ordered. 07/12/20 08:45 EKG STAT Laboratory Results - last 24 hr 07/12/20 07/12/20 07/12/20 08:54 08:54 08:54 WBC 5.0 RBC 5.12 Hgb 15.1 Hct 43.5 MCV 85.0 MCH 29.5 MCHC 34.8 RDW 13.7 Plt Count 86 L MPV 8.5 Absolute Neuts (auto) 3.90 Absolute Lymphs (auto) 0.70 L Absolute Monos (auto) 0.40 Absolute Eos (auto) 0.00 Absolute Basos (auto) 0.00 Neutrophils % 77.4 Lymphocytes % 13.8 L Monocytes % 7.2 Eosinophils % 1.0 Basophils % 0.6 PT 10.4 INR 1.05 PTT (SP) 25.9 Sodium 129 L Potassium 3.9 Chloride 91 L Carbon Dioxide 25 Anion Gap 16.9 BUN 10 Creatinine 1.03 BUN/Creatinine Ratio 9.7 L Random Glucose 102 Serum Osmolality 258.2 L Calcium 9.3 Total Bilirubin 1.1 H AST 27 ALT 10 Alkaline Phosphatase 78 Creatine Kinase 310 H* CK-MB (CK-2) 13.6 H* CK-MB (CK-2) % 4.39 H Troponin I < 0.02 Serum Total Protein 8.2 Albumin 4.7 Globulin 3.5 Albumin/Globulin Ratio 1.3 Vital Signs - 24 hr 07/12/20 07/12/20 08:55 08:58 Temperature 96.7 F L Pulse Rate [ 67 pulse ox] Respiratory 18 18 Rate Blood Pressure 168/89 [Left Arm] O2 Sat by Pulse 95 Oximetry Electrocardiogram normal sinus rhythm 65/min, QRS duration 84 ms, QT/QTc 430/447. No acute ST segment elevation or depression. No acute findings. Vital Signs - 24 hr 07/12/20 07/12/20 07/12/20 08:55 08:58 09:37 Temperature 96.7 F L 96.7 F L Pulse Rate [ 67 72 pulse ox] Respiratory 18 18 18 Rate Blood Pressure 168/89 166/89 [Left Arm] O2 Sat by Pulse 95 94 L Oximetry 07/12/20 07/12/20 07/12/20 10:37 11:00 12:00 Temperature 96.7 F L 97.6 F 97.2 F L Pulse Rate [ 73 76 87 pulse ox] Respiratory 18 18 18 Rate Blood Pressure 145/81 171/88 176/89 [Left Arm] O2 Sat by Pulse 97 98 98 Oximetry 07/12/20 07/12/20 07/12/20 13:00 14:00 15:00 Temperature 97.9 F Pulse Rate [ 82 76 62 pulse ox] Respiratory 18 18 18 Rate Blood Pressure 210/115 155/81 149/87 [Left Arm] O2 Sat by Pulse 97 97 98 Oximetry Departure - Departure Clinical Impression: Transient ischaemic attack (TIA), and cerebral infarction without residual deficits Disposition: Admit Patient Home Medications: Ambulatory Orders Aspirin (Buffered) 325 mg [Bufferin 325 mg] 1 ea PO DAILY 10/13/18 Glyburide 10 mg PO BID 10/13/18 Losartan Potassium 50 mg PO DAILY 10/13/18 Metformin HCl [Metformin Hydrochloride] 1,000 mg PO BID 10/13/18 Metoprolol Tartrate [Lopressor] 25 mg PO BID 10/13/18 Simvastatin 20 mg PO DAILY 10/13/18 Decision To Admit - Decistion To Admit Decision to Admit Date: 07/12/20 Decision to Admit Time: 11:11
--- NOTE | 2020-07-12 09:33 | CT ---
EXAM DESCRIPTION: Head CLINICAL HISTORY: Possible CVA COMPARISON: October 13, 2018 TECHNIQUE: Noncontrast transaxial CT images of the head are obtained from base to vertex. This exam was performed according to our departmental dose-optimization program, which includes automated exposure control, adjustment of the mA and/or kV according to patient size and/or use of iterative reconstruction technique. FINDINGS: The midline structures are not displaced. Sulci are age-appropriate. There are areas of decreased attenuation in the periventricular white matter and the white matter of the centrum semiovale. Focus of decreased attenuation in the left head of the caudate to basal ganglia is stable from previous likely representing area of old lacunar infarct. There is no evidence of mass, mass-effect, hydrocephalus, or acute intracranial hemorrhage. No abnormal extra axial fluid collection is seen. Bone windows show no evidence of depressed skull fracture. Moderate to severe calcifications of the intracranial carotid arteries. The visualized paranasal sinuses are unremarkable. Interval resolution of complete opacification of the left maxillary sinus. IMPRESSION: 1. Age-appropriate atrophy with evidence of old small vessel ischemic type changes seen. 2. No acute abnormality is seen on noncontrast CT of the head. Electronically signed by: Roberto Carlos Combs MD 07/12/2020 9:31 AM TITLE I COORDINATOR
[2020-07-12] MEDS ORDERED: ASPIRIN TABLET 325 MG TAB PO ONE (09:54)
--- NOTE | 2020-07-12 11:01 | ED.PDOC ---
History of Present Illness - General Chief Complaint: Neuro Symptoms/Deficits Stated Complaint: Per patient and :Patient awakened about 8:15 AM this morning with slurred speech and weakness of the left upper and left lower extremities. He was awake but not as alert as usual. There was no headache. The symptoms lasted for about 15 minutes after which they completely subsided. Patient now feels completely back to his usual baseline. He has no prior history of CVA or TIA. He did not take his morning aspirin today. Time Seen by Provider: 07/12/20 08:44 - History of Present Illness Initial Comments: [facility] Consult Note # Demographics Consult Type: 6-24 hour Stroke First Name: yash Last Name: marcus Date of : 1945 Age: 75 Gender: male Time of initial page ([place] ): 07-12-2020, 09:40:00 Time of return call ([place] ): 07-12-2020, 09:40:00 # HPI Additional History: 75yo man who awoke this morning with slurred speech and left sided numbness. He went to bed last night at around 6PM. He awoke at 8AM. He has no focal weakness. Duration: resolved Associated Symptoms: no confusion, no dizziness, no double vision Quality: slurred speech, no weakness, no word finding difficulty # Scores Time of exam and NIHSS ([place] ): 07-12-2020, 09:41:00 Level of Consciousness 1a: [0] = Alert; keenly responsive LOC Questions 1b: [0] = Answers both questions correctly LOC Commands 1c: [0] = Performs both tasks correctly Best Gaze 2: [0] = Normal Visual 3: [0] = No visual loss Facial Palsy 4: [0] = Normal symmetrical movements Motor Arm Left 5a: [0] = No drift Motor Arm Right 5b: [0] = No drift Motor Leg Left 6a: [0] = No drift Motor Leg Right 6b: [0] = No drift Limb Ataxia 7: [0] = Absent Sensory 8: [0] = Normal Best Language 9: [0] = No aphasia Dysarthria 10: [0] = Normal Extinction and Inattention 11: [0] = No abnormality NIHSS Total: 0 # ROS Pulmonary: shortness of breath # PMH-FH-SH Past Medical History: coronary artery disease, Diabetes Past Surgical History: CABG Social History: non-smoker, occasional alcohol # Assessment Impression: Transient Ischemic Attack # Plan Thrombolytic/Intervention: NOT IV Alteplase or IA Intervention Alteplase Exclusion (<3 hour window): NIHSS = 0 Intraarterial Exclusion: non-disabling Blood Pressure Target: SBP < 220 Labs: ESR, hemoglobin A1c, lipid panel Imaging: (urgency: routine admission): CT Angiogram Head and CT Angiogram Neck, MRI Brain without contrast Diagnostic Test: echo without bubble study Therapy/Evaluation: NPO until swallow evaluation, PT/OT evaluation, speech/swallow consultation Medication: aspirin 81 mg PLUS clopidogrel (Plavix) 75 mg for 21 days, then monotherapy therafter DVT Prophylaxis: SCD, chemical DVT prophylaxis Other: permissive hypertension, telemetry monitoring, I have discussed my r ecommendations with the referring provider Electronically signed at 07/12/2020 - 09:42 [place] time by John Kwan MD Electronically signed at 07/12/2020 - :42 [place] time by John Kwan MD Allergies/Adverse Reactions: Allergies NO KNOWN ALLERGY Allergy (Verified 07/12/20 08:59) Home Medications: Ambulatory Orders Aspirin (Buffered) 325 mg [Bufferin 325 mg] 1 ea PO DAILY 10/13/18 Glyburide 10 mg PO BID 10/13/18 Losartan Potassium 50 mg PO DAILY 10/13/18 Metformin HCl [Metformin Hydrochloride] 1,000 mg PO BID 10/13/18 Metoprolol Tartrate [Lopressor] 25 mg PO BID 10/13/18 Simvastatin 20 mg PO DAILY 10/13/18 Sulfa/Trimeth 800/160 (Ds) Tab [Bactrim DS Tab] 1 ea PO Q12HR #20 tab 01/06/19 Past Medical History (General) - Patient Medical History Hx Seizures: Yes - last 1979 Hx Stroke: No Hx Asthma: No Hx of COPD: No Hx Cardiac Disorders: Yes Hx Congestive Heart Failure: No Hx Pacemaker: No Hx Hypertension: Yes Hx Diabetes: Yes Hx MRSA: No Surgical History: coronary bypass surgery - Vaccination History Hx Tetanus, Diphtheria Vaccination: Yes - 2011 Hx Influenza Vaccination: No Hx Pneumococcal Vaccination: No - Social History Hx Tobacco Use: Yes Hx Alcohol Use: No Hx Substance Use: No Hx Physical Abuse: No Hx Emotional Abuse: No - Activities of Daily Living Hospice Agency (if applicable):: None - Female History Patient is a Female of Child Bearing Age (10 -59 yrs old): No Family Medical History - Family History Father Family History: Unknown Living Status: Unknown Departure - Departure Clinical Impression: Transient ischaemic attack (TIA), and cerebral infarction without residual deficits Disposition: Discharge to Home or Self Care Referrals: Yazmin Gage FNP [Primary Care Provider] - 1-2 Weeks Home Medications: Ambulatory Orders Aspirin (Buffered) 325 mg [Bufferin 325 mg] 1 ea PO DAILY 10/13/18 Glyburide 10 mg PO BID 10/13/18 Losartan Potassium 50 mg PO DAILY 10/13/18 Metformin HCl [Metformin Hydrochloride] 1,000 mg PO BID 10/13/18 Metoprolol Tartrate [Lopressor] 25 mg PO BID 10/13/18 Simvastatin 20 mg PO DAILY 10/13/18 Sulfa/Trimeth 800/160 (Ds) Tab [Bactrim DS Tab] 1 ea PO Q12HR #20 tab 01/06/19
[2020-07-12] MEDS ORDERED: CLOPIDOGREL 75 MG TAB PO ONE (11:20)
--- NOTE | 2020-07-12 12:27 | MRI ---
EXAM DESCRIPTION: Brain w/o Contrast: MRI. CLINICAL HISTORY: TIA COMPARISON: CT scan of head and CTA Head on the same visit. CT scan of head September 2018. TECHNIQUE: Multiplanar, high-field MRI unit, multiple diffusion sequences, multiple conventional sequences without contrast. FINDINGS: Bilateral confluent hyperintense FLAIR and T2-weighted signal in the superior periventricular white matter of the frontal and parietal lobes extending into the centrum semiovale. Bilateral subcortical white matter foci with similar signal. Focal relative sparing of the temporal and occipital lobes, except for one focus of abnormal signal in the left occipital lobe. No hemorrhage, no cerebral edema, no midline shift.. Focal chronic lesion left basal ganglia. Right basal ganglia are unremarkable. No hemorrhage, no cerebral edema, no mass-effect normal signal in the brainstem and cerebellar hemispheres. No hemorrhage, no cerebral edema, no mass-effect. Concordance of the diffusion and non-diffusion sequences with no diffusion restriction. Cortical sulci, ventricles, and other CSF spaces, and the subdural spaces are normally configured for patient's age. No effacement or displacement. No midline shift. No extra-axial hemorrhage. Normal flow signal void in the major vessels of the three affiliated Bates, and the venous sinuses. IACs are symmetric bilaterally. Normal signal in the bilateral mastoid air cells. No mass effect in the bilateral cerebellopontine angles. Pituitary gland occupies most of the sella. Base of the cerebellar tonsils is at the level of the foramen magnum. Mucoperiosteal thickening paranasal sinuses. No air-fluid levels. The bony calvarium is intact. IMPRESSION: 1. Scattered bilateral abnormal white matter signal most likely related to aging or cerebral microvascular disease. No hemorrhage, cerebral edema, no mass effect. No diffusion restriction. 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 Otherwise unremarkable. 2. Normal noncontrast MRI diffusion study. 3. Mild chronic paranasal sinusitis. Electronically signed by: Kevon Arellano MD 07/12/2020 12:25 PM [facility]
[2020-07-12] MEDS ORDERED: METOPROLOL TARTRATE 25 MG TAB PO ONE (12:40)
[2020-07-12] MEDS: LOSARTAN POTASSIUM 25 MG TAB PO SCH (12:52)
--- NOTE | 2020-07-12 13:01 | CT ---
EXAM: CTA Head (accession [id number]), CTA Neck (accession [id number]) INDICATION: 75 years Male, TIA. COMPARISON: CT head without contrast and MR brain without contrast 07/12/2020, CT cervical spine without contrast 10/13/2018 TECHNIQUE: CT angiogram of the head and neck was performed following the administration of IV contrast. Multi-planar reformations provided. This examination was performed according to a CT angiographic (CTA) protocol with 3D post-processing. This involves 3D reconstructions, MIPS, volume rendered images and/or shaded surface rendering. This exam was performed according to our departmental dose-optimization program, which includes automated exposure control, adjustment of the mA and/or kV according to patient size and/or use of iterative reconstruction technique. EXTRACRANIAL FINDINGS: Aorta / Proximal Great Vessels : Mild atherosclerotic plaque. No hemodynamically significant stenosis, dissection, or occlusion at the proximal supra aortic great vessels. Right Carotid: Mild to moderate calcified and noncalcified atherosclerotic plaque at the carotid bulb and bifurcation. No hemodynamically significant stenosis, dissection, or occlusion in the extracranial right carotid arterial system. Right Vertebral: Mild atherosclerotic plaque at the origin of the right vertebral artery. No hemodynamically significant stenosis, occlusion, or dissection. Left Carotid: No mild to moderate calcified and noncalcified atherosclerotic plaque in the common carotid artery and at the carotid bulb and bifurcation. No hemodynamically significant stenosis, occlusion, or dissection in the extracranial left carotid arterial system. Left Vertebral: Mild atherosclerotic plaque at the origin of the left vertebral artery. No hemodynamically significant stenosis, occlusion, or dissection. Degenerative changes in the visualized spine, which would be better assessed by dedicated cervical spine CT if desired. The appearance overall is similar to the prior CT cervical spine examination of 10/13/2018. Incidental 6 mm groundglass pulmonary nodule in the anterior right upper lobe (axial series 2 image 25). Note: All internal carotid artery stenoses are graded according to NASCET criteria. Grading system is mild <50%, moderate 50-69%, and severe 70% and greater. INTRACRANIAL FINDINGS: Right Vertebral: Unremarkable. Left Vertebral: Mild atherosclerosis at the proximal V4 segment of the left vertebral artery without hemodynamically significant stenosis or occlusion. Basilar: Unremarkable. Right Posterior Cerebral: Multifocal mild to moderate stenoses without occlusion or aneurysm. Possible moderate to severe focal stenosis in the distal P1 segment of the right [employer]. Left Posterior Cerebral: Multifocal mild to moderate stenoses without occlusion or aneurysm. Right Internal Carotid: Moderate atherosclerosis in the carotid siphons without hemodynamically significant stenosis or occlusion. Right Anterior Cerebral: Unremarkable. Right Middle Cerebral: Multifocal mild to moderate stenoses without occlusion or aneurysm. Left Internal Carotid: Moderate atherosclerosis in the carotid siphons without hemodynamically significant stenosis or occlusion. Left Anterior Cerebral: Probable mild to moderate stenosis in the distal A2 segment of the left MARILEE. Left Middle Cerebral: Multifocal mild to moderate stenoses without occlusion or aneurysm. Anterior Communicating Artery: Unremarkable. Right Posterior Communicating Artery: Unremarkable. Left Posterior Communicating Artery: Unremarkable. Remote appearing left basal ganglia infarct, as seen on the unenhanced head CT and brain MR from today. No evidence for evolving acute cortical infarct on CTA. IMPRESSION: 1. Mild extracranial atherosclerosis without hemodynamically significant stenosis, occlusion, or dissection in the major extracranial carotid or vertebral arterial circulation. 2. Multifocal moderate intracranial atherosclerosis with areas of mild to moderate stenoses as described above. No occlusion or aneurysm is identified in the major intracranial arterial vasculature. Electronically signed by: Damaris Meza MD 07/12/2020 1:00 PM [facility]
[2020-07-12] MEDS ORDERED: SODIUM CHLORIDE 0.9% (FLUSH) 10 ML SYG IV PRN (17:12)
[2020-07-12] MEDS ORDERED: DEXTROSE 50% 25 GM/50 ML SYG IV PRN (17:14)
[2020-07-12] MEDS ORDERED: GLUCAGON INJ 1 MG VIAL SUBCU PRN (17:14)
[2020-07-12] MEDS ORDERED: IV SET AND CAP CHANGE INJ INJ SCH (17:30)
[2020-07-12] MEDS ORDERED: ENOXAPARIN SODIUM 40 MG/0.4 ML SYG SUBCU SCH (21:00)
[2020-07-12] MEDS: INSULIN LISPRO 100 UNITS/ML PEN SUBCU SCH (21:40)
[2020-07-13] MEDS ORDERED: NITROGLYCERIN 0.4 MG 25 EA TAB SL ONE (00:35)
[2020-07-13] MEDS: INSULIN LISPRO 100 UNITS/ML PEN SUBCU SCH ×2 (07:20→11:48)
[2020-07-13] MEDS: LOSARTAN POTASSIUM 25 MG TAB PO SCH (08:00)
[2020-07-13] MEDS ORDERED: ASPIRIN (CHEWABLE) 81 MG TAB PO SCH (09:00)
[2020-07-13] MEDS ORDERED: CLOPIDOGREL 75 MG TAB PO SCH (09:00)
[2020-07-13 11:55] VITALS: BP 169/80; TEMP 97.8; O2SAT 97
[2020-07-13] MEDS ORDERED: METOPROLOL TARTRATE 25 MG TAB PO SCH (13:00)
[2020-07-13] MEDS ORDERED: ASPIRIN (ENTERIC COATED) 325 MG TAB PO SCH (13:00)
[2020-07-13] MEDS ORDERED: LOSARTAN POTASSIUM 25 MG TAB PO SCH (13:00)
--- NOTE | 2020-07-13 13:53 | SSS ---
SUPERVISING PHYSICIAN: Mao Ragsdale MD DATE OF ADMISSION: 07/12/20 DATE OF DISCHARGE: 07/13/20 CHIEF COMPLAINT: Transient left sided weakness. HISTORY OF PRESENT ILLNESS: Mr. Ferguson is a 75-year-old male patient who awoke at approximately 8:15 AM on date of admission in the morning with some slurred speech and weakness in the left upper and lower extremities. He was alert and awake as usual. He had no headaches. He reports his symptoms lasted for about 15 minutes and completely resolved prior to coming to the ER. He has no previous history of any CVAs or TIAs. In the Emergency Room, his symptoms had essentially resolved. He had a tele-neuro visit with Neurology who recommended he be admitted for further workup in regards to concerns for possible transient ischemic attack. He was placed in observation in stable condition. PAST MEDICAL HISTORY: 1. Type 2 diabetes mellitus. 2. Hyperlipidemia. 3. Seasonal allergies. 4. Hypertension. PAST SURGICAL HISTORY: 1. Bilateral cataracts. 2. Coronary artery bypass in 2011. HOME MEDICATIONS: 1. Glyburide 10 mg b.i.d. 2. Aspirin 325 mg daily. 3. Lopressor 25 mg b.i.d. 4. Metformin 1000 mg b.i.d. 5. Losartan 50 mg daily. ALLERGIES: NO KNOWN DRUG ALLERGIES. FAMILY HISTORY: Noncontributory to current admission. SOCIAL HISTORY: The patient is retired. He is . He lives in [place], [place]. He has a past history of smoking, but quit in 1974. He does not drink any alcohol or use illicit drugs. REVIEW OF SYSTEMS: CONSTITUTIONAL: Denies any fevers, general malaise. Positive for weakness as noted in history of present illness, resolved prior to admission. HEENT: Denies headaches, sore throats, earaches, nasal congestion, vision changes. RESPIRATORY: Denies coughing, wheezing or shortness of breath. CARDIOVASCULAR: Denies chest pain, palpitations or syncopal episodes. GASTROINTESTINAL: Denies nausea, vomiting, diarrhea, constipation or abdominal pain. GENITOURINARY: Denies dysuria, hematuria, polyuria. MUSCULOSKELETAL: Left sided upper and lower extremity weakness that was of approximately 15 minutes duration prior to admission. Otherwise, no complaints. No myalgias or joint swelling. SKIN: Denies lesions, rashes, moles or unexplained changes. NEUROLOGIC: As noted in history of present illness, a brief 15 minute episode of left sided weakness with some slurred speech that resolved prior to admission to the Emergency Room. No past reported history of ataxia, seizures, any stroke-like symptoms or other neurological deficits. HEMATOLOGIC: Denies unexplained bleeding, bruising or transfusion reactions. PHYSICAL EXAMINATION: VITAL SIGNS: Initially on admission, temperature 96.7, pulse 67, blood pressure 168/89, respirations 18, saturation 95% on room air. At time of discharge, temperature was 97.8, pulse 67, blood pressure 169/80, respirations 18, saturation 97% on room air. GENERAL: The patient was resting comfortably. He did not appear to be in any acute distress. He was alert, conversant. HEENT: Tympanic membranes clear bilaterally. Oropharynx is pink, moist without any lesions. NECK: Supple, nontender with full range of motion. No jugular venous distention noted. RESPIRATORY: Lung sounds are clear to auscultation bilaterally without any rhonchi, wheezes or rales. CARDIOVASCULAR: Regular rate and rhythm without any appreciable murmurs, gallops, or rubs. ABDOMEN: Soft, nontender. Positive bowel sounds. EXTREMITIES: There is no cyanosis, clubbing or edema. NEUROLOGIC: Cranial nerves II-XII are grossly intact. Facial features are symmetrical. Extraocular movements are within normal limits. There is no obvious nystagmus or any motor or sensory deficits detected on initial exam and at time of discharge. The patient is alert and oriented times three both on admission and at discharge. SKIN: Warm, pink and dry. LABORATORY: CBC was within normal limits. Sedrate normal at 10. Coagulation studies showed normal PT, PT-T. Chemistries at discharge showed sodium 133, potassium 4.0, creatinine 0.98. Blood sugars ranged between 94 and 198. Calcium 8.8. Liver functions were all within normal limits. Troponin less than 0.02. Triglycerides normal at 106. Cholesterol 119, HDL 52, LDL 45. MICROBIOLOGY: COVID swab was negative. RADIOLOGY: He had a brain MRI without contrast showed scattered bilateral abnormal white matter noted with signal loss, most likely related to aging or cerebral microvascular disease. No obvious hemorrhage, cerebral edema or mass effect. No diffusion restrictions. Probably an old infarct in the left basal ganglia. Otherwise unremarkable. Normal non-contrast MRI diffuse study with some mild chronic sinus disease. CT of the neck and head per radiologic interpretation showed mild intracranial arteriosclerosis without any hemodynamically significant stenosis, occlusions or dissection within the major extracranial carotid or vertebral artery circulation. There was note of some multifocal moderate intracranial arteriosclerosis within the areas of the mild to moderate stenosis. Please see all those reports for details. No occlusions or aneurysms were identified in the major intracranial arteries or vasculature arterial system. Echocardiogram was pending at time of discharge. CT of the head was also completed on admission with no intracranial abnormalities noted. Please see that report for details. HOSPITAL COURSE: Mr. Ferguson had tele-neurological consult. Please see Dr. oJhn Kwan's consultation note. He was monitored overnight on telemetry. He had neurological checks per protocol. He had one little episode of some mild chest pain which he described as some chest heaviness which he has had in the past, but no actual obvious changes in EKG. EKG did show a first degree AV block with a sinus rhythm and no other ST or T-wave changes to indicate acute ischemia or injury pattern. His troponins were all negative. On the morning of discharge, he was not having any complaints of any chest pain, discomfort, shortness of breath, no repeat neurological deficits. Neurological exam was unremarkable at discharge. It was felt he was showing good clinical response and stable enough to transition to outpatient management. He was started on Plavix during admission as well as dual coverage with aspirin. Blood pressure was well controlled. No other complaints were noted. It was felt he could continue with outpatient management. ADMISSION DIAGNOSIS: 1. Possible transient ischemic attack with symptoms resolved prior to admission. 2. Hypertension. 3. Type 2 diabetes mellitus without any complications. 4. Hyperlipidemia. 5. Seasonal allergies. DISCHARGE DIAGNOSIS: 1. Possible transient ischemic attack with no noted acute findings on MRIs, CTAs of the neck, head, no additional concerning neurological findings to need followup with outpatient management. 2. Hypertension. 3. Type 2 diabetes mellitus without any complications. 4. Hyperlipidemia. 5. Seasonal allergies. PLAN: Mr. Ferguson was discharged on 07/13/20 to followup with [facility]. He was started on dual antiplatelet therapy with aspirin and Plavix. He was already on a statin. His blood pressure medications were controlling his blood pressures well. His hemoglobin A1c on this admission was 6.7. He was continued with his diabetes management on current medications and diet. He was to resume his usual activities as tolerated. He was given instructions to return to the Emergency Room should he have any concerning symptoms. DISPOSITION: The patient was discharged home. CONDITION ON DISCHARGE: Stable and improved. #[id number] MTDD
[2020-07-13] MEDS ORDERED: metFORMIN HCL 500 MG TAB PO SCH (17:00)
[2020-07-13] MEDS ORDERED: glyBURIDE 5 MG TAB PO SCH (17:00)
[2020-07-13] MEDS ORDERED: SIMVASTATIN 20 MG TAB PO SCH (21:00)
[2020-07-14] MEDS ORDERED: ASPIRIN (CHEWABLE) 81 MG TAB PO SCH (09:00)
[2020-07-14] MEDS ORDERED: ASPIRIN (ENTERIC COATED) 325 MG TAB PO SCH (09:00)
== END 2020-07-13 14:40 | disposition home or self-care (01) ==
LOC: ER 08:36 → MS 08:37 → UNDOADMOB 15:33 → UNDODISOB 07-13 14:40
PROVIDERS: ADMIT Nurse Practitioner Family; ATTEND Nurse Practitioner Family
DX: M62.81 Muscle weakness (generalized) (principal); R47.81 Slurred speech; I10 Essential (primary) hypertension; E11.9 Type 2 diabetes mellitus without complications; E78.5 Hyperlipidemia, unspecified; J30.2 Other seasonal allergic rhinitis; I65.23 Occlusion and stenosis of bilateral carotid arteries; I08.1 Rheumatic disorders of both mitral and tricuspid valves; I44.0 Atrioventricular block, first degree; J32.8 Other chronic sinusitis; Z20.822 Contact with and (suspected) exposure to COVID-19; Z79.82 Long term (current) use of aspirin; Z79.84 Long term (current) use of oral hypoglycemic drugs; Z79.899 Other long term (current) drug therapy; Z95.1 Presence of aortocoronary bypass graft; Z87.891 Personal history of nicotine dependence
CPT/HCPCS: 96372 ×2; J1650; J1815; 80048; 82553; 80053; 82948 ×3; 83036; 80061 ×2; 36415 ×5; 85025; 82550; 85730; 85610; 85651; 84484 ×3; 36416 ×3; 70450; 70496; 70498; 94760; 97162; 99285; 93306; 70551; 93005 ×2; G0378; 87635